=== PATIENT | male | born 1995 | race African-American/Black ===

== ENCOUNTER → 2023-09-27 | Outpatient (CLI) | payer OTHER ==
[2023-09-27 10:51] LABS: HEMATOCRIT 46.4 % (42.0-52.0); HEMOGLOBIN 14.4 g/dl (13.5-17.5); MEAN CORPUSCULAR HEMOGLOBIN 23.6 pg (27.0-33.0); MEAN CORPUSCULAR VOLUME 76.1 fl (80.0-96.0); PLATELET COUNT, AUTOMATED 235 10^3/uL (150-450); WHITE BLOOD COUNT 4.6 10^3/uL (4.0-10.0)
[2023-09-27 11:02] LABS: INR 0.96; PROTHROMBIN TIME 12.5 SECONDS (12.5-14.5)
[2023-09-27 11:03] LABS: PARTIAL THROMBOPLASTIN TIME 30.9 SECONDS (24.8-34.2)
[2023-09-27 11:07] LABS: POTASSIUM SERUM 4.3 MMOL/L (3.5-5.1)
== END ==
LOC: M LAB 09:31
PROVIDERS: ATTEND Otolaryngology
DX: J32.0 Chronic maxillary sinusitis (principal); J35.01 Chronic tonsillitis; J31.0 Chronic rhinitis; J34.3 Hypertrophy of nasal turbinates; Z91.013 Allergy to seafood
CPT/HCPCS: 36415; 80051; 85027; 85610; 85730; G0463

== ENCOUNTER → 2023-10-17 | Outpatient (CLI) | payer OTHER | LOC: M RAD 10:18 | PROVIDERS: ATTEND Otolaryngology | DX: J32.0 Chronic maxillary sinusitis (principal) ==

== ENCOUNTER 2023-11-24 10:14 | Day surgery (SDC) | payer OTHER ==
[~2023-11-24] VITALS: Ht 175.3 cm; Wt 80.6 kg
[2023-11-24] MEDS: LR 1,000 ML IV SCH (11:33)
[2023-11-24] MEDS ORDERED: MIDAZOLAM INJ 2MG/2ML VIAL As Ordered ONE (12:31)
[2023-11-24] MEDS ORDERED: fentaNYL 100 MCG/2 ML INJECTION As Ordered ONE (12:31)
[2023-11-24] MEDS ORDERED: ROCURONIUM BROMIDE 50MG/5ML VIAL As Ordered ONE (12:32)
[2023-11-24] MEDS ORDERED: propofoL 200 MG/20 ML VIAL As Ordered ONE (12:32)
[2023-11-24] MEDS ORDERED: ONDANSETRON 4MG 2ML VIAL As Ordered ONE (12:32)
[2023-11-24] MEDS ORDERED: ACETAMINOPHEN 1000MG 100ML IV BAG As Ordered ONE (12:32)
[2023-11-24] MEDS ORDERED: LIDOCAINE 2% 100MG/5ML SDV (FOR ANES.) As Ordered ONE (12:32)
[2023-11-24] MEDS ORDERED: SUGAMMADEX SODIUM 500 MG/5 ML VIAL (BRIDION) As Ordered ONE (12:33)
[2023-11-24] MEDS ORDERED: OXYMETAZOLINE 0.05% NASAL SPRAY (AFRIN) As Ordered ONE (12:57)
[2023-11-24] MEDS ORDERED: HYDROmorphone HCL 2MG/ML 1ML VIAL As Ordered ONE (13:29)
[2023-11-24] MEDS ORDERED: LR 1,000 ML IV SCH (14:00)
[2023-11-24] MEDS ORDERED: ONDANSETRON 4MG 2ML VIAL IV PRN (14:00)
[2023-11-24] MEDS ORDERED: fentaNYL 100 MCG/2 ML INJECTION IV PRN (14:00)
[2023-11-24 15:30] VITALS: BP 121/61; TEMP 97.8; O2SAT 98
== END 2023-11-24 15:37 | disposition home or self-care (01) ==
LOC: M SDC 10:14
PROVIDERS: ATTEND Otolaryngology
DX: J35.1 Hypertrophy of tonsils (principal); L30.9 Dermatitis, unspecified; Z91.013 Allergy to seafood
CPT/HCPCS: 42826; 88302; J0131; J1100; J1170; J2250; J2405; J3010

== ENCOUNTER 2024-05-28 06:01 | Day surgery (SDC) | payer OTHER ==
[~2024-05-28] VITALS: Ht 175.3 cm; Wt 77.9 kg
[2024-05-28] MEDS ORDERED: LR 1,000 ML IV SCH ×2 (06:30→09:00)
[2024-05-28] MEDS: ceFAZolin 2 GM/D5W 50 ML IV BAG As Ordered ONE (07:34)
[2024-05-28] MEDS ORDERED: KETOROLAC 60MG 2ML VIAL As Ordered ONE (07:58)
[2024-05-28] MEDS ORDERED: propofoL 200 MG/20 ML VIAL As Ordered ONE (07:58)
[2024-05-28] MEDS ORDERED: ONDANSETRON 4MG 2ML VIAL As Ordered ONE (07:58)
[2024-05-28] MEDS ORDERED: dexmedeTOMIDine (4MCG/ML)200MCG/50ML BTL (PRECEDEX) As Ordered ONE (07:58)
[2024-05-28] MEDS ORDERED: ACETAMINOPHEN 1000MG 100ML IV BAG As Ordered ONE (07:58)
[2024-05-28] MEDS ORDERED: METOCLOPRAMIDE INJ 10MG/2ML VIAL As Ordered ONE (07:58)
[2024-05-28] MEDS ORDERED: LIDOCAINE 2% 100MG/5ML SDV (FOR ANES.) As Ordered ONE (07:58)
[2024-05-28] MEDS ORDERED: MIDAZOLAM INJ 2MG/2ML VIAL As Ordered ONE (07:58)
[2024-05-28] MEDS ORDERED: fentaNYL 100 MCG/2 ML INJECTION As Ordered ONE (07:58)
[2024-05-28] MEDS: BACITRACIN OINTMENT 30GM TUBE As Ordered ONE (08:37)
[2024-05-28] MEDS ORDERED: HYDROMORPHONE HCL 0.5 MG/ 0.5 ML SYRINGE IV PRN (09:00)
[2024-05-28] MEDS ORDERED: fentaNYL 100 MCG/2 ML INJECTION IV PRN (09:00)
[2024-05-28] MEDS: oxyCODONE 5MG TAB PO PRN (09:32)
[2024-05-28] MEDS: ONDANSETRON 4MG 2ML VIAL IV PRN (09:32)
[2024-05-28 10:00] VITALS: BP 125/85; TEMP 98.2; O2SAT 100
== END 2024-05-28 10:06 | disposition home or self-care (01) ==
LOC: M SDC 06:01
PROVIDERS: ATTEND Orthopaedic Surgery Hand Surgery
DX: M67.432 Ganglion, left wrist (principal); G47.33 Obstructive sleep apnea (adult) (pediatric); Z91.013 Allergy to seafood
CPT/HCPCS: 25111; 88305; J0131; J0665; J0690; J1100; J1885; J2250; J2405; J2765; J3010

== ENCOUNTER 2024-10-10 06:14 | Day surgery (SDC) | payer OTHER ==
[~2024-10-10] VITALS: Ht 175.3 cm; Wt 80.4 kg
[2024-10-10] MEDS ORDERED: ROCURONIUM BROMIDE 50MG/5ML VIAL As Ordered ONE (07:59)
[2024-10-10] MEDS ORDERED: ONDANSETRON 4MG 2ML VIAL As Ordered ONE (07:59)
[2024-10-10] MEDS ORDERED: LIDOCAINE 2% 100MG/5ML SDV (FOR ANES.) As Ordered ONE (07:59)
[2024-10-10] MEDS ORDERED: propofoL 200 MG/20 ML VIAL As Ordered ONE (07:59)
[2024-10-10] MEDS ORDERED: SUGAMMADEX SODIUM 500 MG/5 ML VIAL (BRIDION) As Ordered ONE (07:59)
[2024-10-10] MEDS ORDERED: fentaNYL 250 MCG/5 ML INJECTION As Ordered ONE (08:05)
[2024-10-10] MEDS ORDERED: MIDAZOLAM INJ 2MG/2ML VIAL As Ordered ONE (08:06)
[2024-10-10] MEDS: NS (Normal Saline) 0.9% 1,000 ML IV SCH (08:21)
[2024-10-10] MEDS ORDERED: dexmedeTOMIDine (4MCG/ML)200MCG/50ML BTL (PRECEDEX) As Ordered ONE (09:02)
[2024-10-10] MEDS ORDERED: ACETAMINOPHEN 1000MG/100ML IV BAG As Ordered ONE (09:03)
[2024-10-10] MEDS: EPINEPHrine 1MG/ML INJ 30ML MD-VIAL As Ordered ONE (09:42)
[2024-10-10] MEDS: METHYLENE BLUE 0.5% (5MG/ML) 10 ML AMP (PROVAYBLUE) As Ordered ONE (09:42)
[2024-10-10] MEDS: SODIUM CHLORIDE 0.9% NASAL GEL 15GM (AYR) As Ordered ONE (10:23)
[2024-10-10] MEDS: LIDOCAINE W/EPINEPHRINE 1% 20ML VIAL As Ordered ONE (10:24)
[2024-10-10] MEDS ORDERED: fentaNYL 100 MCG/2 ML INJECTION IV PRN (10:35)
[2024-10-10] MEDS ORDERED: NS (Normal Saline) 0.9% 1,000 ML IV SCH (10:35)
[2024-10-10] MEDS: HYDROMORPHONE HCL 0.5 MG/ 0.5 ML SYRINGE IV PRN (11:25)
[2024-10-10] MEDS: ONDANSETRON 4MG 2ML VIAL IV PRN (11:26)
[2024-10-10] MEDS: oxyCODONE 5MG TAB PO PRN (11:26)
[2024-10-10 12:10] VITALS: BP 128/74; TEMP 98.3; O2SAT 98
== END 2024-10-10 12:35 | disposition home or self-care (01) ==
LOC: M SDC 06:14
PROVIDERS: ATTEND Otolaryngology
DX: J34.2 Deviated nasal septum (principal); J34.3 Hypertrophy of nasal turbinates; Z90.89 Acquired absence of other organs; Z91.013 Allergy to seafood
CPT/HCPCS: 30140; 30520; J0131; J0171; J1100; J1171; J2250; J2405; J3010; Q9968